=== PATIENT | male | born 1985 | race African-American/Black ===

== ENCOUNTER 2021-07-31 10:48 | Inpatient (IN) | payer MEDICAID, OTHER ==
[~2021-07-31] VITALS: Ht 170.2 cm; Wt 79.8 kg
[2021-07-31 11:51] LABS: BASOPHILS % 0.8 % (0.0-2.0); EOSINOPHILS % 6.2 % (0.0-5.0); HEMATOCRIT. 44.2 % (42.0-52.0); HEMOGLOBIN. 14.8 g/dL (14.0-18.0); LYMPHOCYTES % 20.1 % (20.0-50.0); MEAN CORPUSCULAR HEMOGLOBIN 31.2 pg (28.0-32.0); MEAN CORPUSCULAR VOLUME 92.9 fL (80.0-94.0); MEAN PLATELET VOLUME 7.5 fl (7.4-10.4); NEUTROPHILS % 60.9 % (40.0-76.0); PLATELET 227 x1000/uL (130-400); RED BLOOD CELL COUNT 4.76 mill/uL (4.7-6.1); RED CELL DISTRIBUTION WIDTH 13.5 % (11.6-14.6)
[2021-07-31 11:58] LABS: CHLORIDE 104 mEq/L (98-107)
[2021-07-31 12:00] LABS: PROTHROMBIN TIME 11.1 sec (9.6-11.0)
[2021-07-31] MEDS ORDERED: ENOXAPARIN 80MG/0.8ML SYR SUBCUT ONE (13:45)
[2021-07-31] MEDS ORDERED: DIPHENHYDRAMINE 50MG/ML VIAL IV PRN (20:30)
[2021-07-31] MEDS ORDERED: CLONIDINE 0.1MG TABLET PO PRN (20:30)
[2021-07-31] MEDS ORDERED: ACETAMINOPHEN 325MG TABLET PO PRN ×2 (20:30)
[2021-07-31] MEDS ORDERED: ONDANSETRON HCL 4MG/2ML INJ IV PRN (20:30)
[2021-07-31] MEDS: SODIUM CHLORIDE 0.9% INJ 3ML FLUSH IVF SCH (22:25)
[2021-07-31 23:44] VITALS: BP 127/80
[2021-08-01] VITALS: BP 118/73
[2021-08-01] MEDS ORDERED: ENOXAPARIN 80MG/0.8ML SYR SUBCUT SCH (03:00)
[2021-08-01 04:00] VITALS: BP 106/64
[2021-08-01] MEDS: SODIUM CHLORIDE 0.9% INJ 3ML FLUSH IVF SCH (06:20)
[2021-08-01 08:00] VITALS: BP 111/71
[2021-08-01 12:00] VITALS: BP 117/72
[2021-08-01 13:10] VITALS: BP 117/76
== END 2021-08-01 14:20 | disposition home or self-care (01) | DRG 197 ==
LOC: ER 10:48 → 8WST 16:46 → ENRESERV 20:54
PROVIDERS: ADMIT Internal Medicine; ATTEND Internal Medicine
DX: I82.411 Acute embolism and thrombosis of right femoral vein (principal); I82.431 Acute embolism and thrombosis of right popliteal vein; F17.200 Nicotine dependence, unspecified, uncomplicated; Z86.718 Personal history of other venous thrombosis and embolism
CPT/HCPCS: 36415; 71045; 80053; 84484; 85025; 93005; 93971; 99285; J1650

== ENCOUNTER 2023-03-06 07:42 | Emergency (ER) | payer MEDICAID ==
[~2023-03-06] VITALS: Ht 167.6 cm; Wt 80.0 kg
[2023-03-06] MEDS ORDERED: OXYCODONE HCL/ACETAMINOPHEN 5/325MG TABLET PO ONE (08:00)
[2023-03-06] MEDS ORDERED: OXYC-100 PO (08:07)
[2023-03-06] MEDS ORDERED: AMOX1TAB16 PO (08:07)
[2023-03-06 08:37] VITALS: BP 189/171
== END 2023-03-06 09:28 | disposition home or self-care (01) ==
LOC: ER 07:45
DX: K08.89 Other specified disorders of teeth and supporting structures (principal)
CPT/HCPCS: 99283

== ENCOUNTER 2024-03-11 17:51 | Emergency (ER) | payer MEDICAID ==
[~2024-03-11] VITALS: Ht 170.2 cm; Wt 84.0 kg
[~2024-03-11 17:51] MED LIST: AMOX1TAB16 PO; OXYC-100 PO
[2024-03-11 17:59] VITALS: O2SAT 99
[2024-03-11 23:24] VITALS: BP 117/81; PULSE 95; RESP 18; TEMP 98.4
== END 2024-03-11 23:29 | disposition home or self-care (01) ==
LOC: ER 17:51
DX: M79.605 Pain in left leg (principal); F17.200 Nicotine dependence, unspecified, uncomplicated
CPT/HCPCS: 93971; 99284

== ENCOUNTER 2024-04-03 10:08 | Emergency (ER) | payer MEDICAID ==
[~2024-04-03] VITALS: Ht 167.6 cm; Wt 83.9 kg
[2024-04-03 10:17] VITALS: O2SAT 99
[2024-04-03] MEDS: ACETAMINOPHEN 325MG TABLET PO ONE (10:30)
[2024-04-03] MEDS ORDERED: APIX5TAB MT (13:35)
[2024-04-03] MEDS: KETOROLAC 15MG/ML VIAL IM ONE (14:54)
[2024-04-03 15:11] VITALS: BP 140/89; PULSE 91; RESP 18; TEMP 98.6
== END 2024-04-03 15:16 | disposition home or self-care (01) ==
LOC: ER 10:30
DX: I82.402 Acute embolism and thrombosis of unspecified deep veins of left lower extremity (principal); Z98.890 Other specified postprocedural states
CPT/HCPCS: 99285; 93971; 96372; J1885

== ENCOUNTER 2024-04-10 18:39 | Emergency (ER) | payer MEDICAID ==
[~2024-04-10] VITALS: Ht 170.2 cm; Wt 83.9 kg
[~2024-04-10 18:39] MED LIST changes: +APIX5TAB MT
[2024-04-10 18:42] VITALS: BP 122/74; PULSE 90; RESP 16; TEMP 98.7; O2SAT 100
[2024-04-10 20:12] LABS: BASOPHILS % 1.3 % (0.0-2.0); EOSINOPHILS % 12.2 % (0.0-5.0); HEMATOCRIT. 43.5 % (42.0-52.0); HEMOGLOBIN. 14.5 g/dL (14.0-18.0); LYMPHOCYTES % 23.7 % (20.0-50.0); MEAN CORPUSCULAR HEMOGLOBIN 31.5 pg (28.0-32.0); MEAN CORPUSCULAR HGB CONC 33.2 g/dL (31.0-37.0); MEAN PLATELET VOLUME 7.3 fl (7.4-10.4); NEUTROPHILS % 52.8 % (40.0-76.0); PLATELET 375 x1000/uL (130-400); RED BLOOD CELL COUNT 4.58 mill/uL (4.7-6.1); RED CELL DISTRIBUTION WIDTH 13.2 % (11.6-14.6); WHITE BLOOD COUNT 4.8 x1000/uL (4.5-11.0)
[2024-04-10 20:16] LABS: CHLORIDE 103 mEq/L (98-107); POTASSIUM 4.5 mEq/L (3.5-5.1); SODIUM 136 mEq/L (136-145)
[2024-04-10 20:17] LABS: CALCIUM 9.5 mg/dL (8.7-10.4); CARBON DIOXIDE 29 mEq/L (21-32)
[2024-04-10 20:22] LABS: CREATININE 1.1 mg/dL (0.6-1.3); GLUCOSE 94 mg/dL (70-105); PROTHROMBIN TIME 10.7 sec (9.6-11.0); UREA NITROGEN BLOOD 11 mg/dL (9-23)
[2024-04-11] MEDS ORDERED: APIX5TAB MT (07:17)
== END 2024-04-10 20:31 | disposition left against medical advice (07) ==
LOC: ER 18:39
DX: M79.669 Pain in unspecified lower leg (principal); Z53.21 Procedure and treatment not carried out due to patient leaving prior to being seen by health care provider
CPT/HCPCS: 36415; 80048; 85025

== ENCOUNTER 2024-04-11 00:58 | Emergency (ER) | payer MEDICAID ==
[~2024-04-11] VITALS: Ht 170.2 cm; Wt 83.3 kg
[2024-04-11 01:03] VITALS: O2SAT 98
[2024-04-11] MEDS ORDERED: APIX5TAB MT (07:17)
[2024-04-11 08:05] VITALS: BP 146/76; PULSE 58; RESP 18; TEMP 98.2
== END 2024-04-11 08:21 | disposition home or self-care (01) ==
LOC: ER 00:58
DX: I82.402 Acute embolism and thrombosis of unspecified deep veins of left lower extremity (principal); Z76.0 Encounter for issue of repeat prescription
CPT/HCPCS: 93970; 99284; Z7610